=== PATIENT | female | born 1945 | race Caucasian/White ===

== ENCOUNTER → 2019-12-21 14:18 | Outpatient (CLI) | payer MEDICARE, SELFPAY ==
[2019-12-21 16:11] LABS: Influenza A - CEPHEID Flu A NEGATIVE (NEGATIVE); Influenza B - CEPHEID Flu B NEGATIVE (NEGATIVE)
[2019-12-22 21:52] LABS: COVID19 Sendout Not Detected (Not Detected)
== END ==
PROVIDERS: PCP Nurse Practitioner; Visit Provider Physician Assistant
DX: Z20.828 Contact with and (suspected) exposure to other viral communicable diseases (principal)
CPT/HCPCS: 87502; 87635

== ENCOUNTER → 2023-03-24 11:10 | Outpatient (CLI) | payer MEDICARE, SELFPAY ==
--- NOTE | 2023-03-24 11:15 | DI.MRI.S_ITS ---
PROCEDURE: MR KNEE RT WO CON INDICATIONS: RIGHT KNEE PAIN TECHNIQUE: Noncontrast sagittal PD fast spin echo and T2 fast spin echo with fat saturation, sagittal 3-D FLASH with fat saturation; coronal T1 spin echo and PD fast spin echo with fat saturation, and axial PD fast spin echo with fat saturation through the knee. COMPARISON: [facility], CR, XR KNEE 3 VIEWS BILATERAL, 02/20/2023, 9:42. FINDINGS: Image quality: Images are mildly degraded by patient motion on multiple pulse sequences. Diagnostic information is obtained. Anterior Cruciate Ligament: Intact. Posterior Cruciate Ligament: Intact. Medial Collateral Ligament: Intact. Lateral Collateral Ligament: Intact. Medial Meniscus: Intact. Lateral Meniscus: There is horizontal tearing of the body of the lateral meniscus extending to the adjacent anterior and posterior horns that communicates with the inner third of the femoral articular surface and the free edge margin. A small vertical longitudinal component is seen extending to the anterior root attachment. There is also suspected vertical component at the posterior horn. Medial and Lateral Tendons: The semimembranosus tendon insertions and meniscocapsular junction appear intact. Visualized portions of the pes anserinus tendons appear normal. No abnormal bursal fluid. The long and short heads of the biceps femoris tendon appear intact. The popliteus tendon appears intact. No signs of posterolateral corner injury. Iliotibial band appears normal. Anterior Structures: The quadriceps and patellar tendons appear intact. No patellar subluxation. No femoral trochlear dysplasia or ventral trochlear prominence. No edema in the infrapatellar fat pad. Bones: No acute trabecular bone injury or fracture. Medial Femorotibial Cartilage: Mild generalized partial-thickness cartilage thinning. Lateral Femorotibial Cartilage: Full-thickness cartilage loss is seen in the central to posterior weight-bearing portion of the lateral femorotibial compartment with moderate subchondral edema and small marginal osteophytes. No definite osseous fracture line is seen. Patellofemoral Cartilage: Full-thickness cartilage loss is seen at the median ridge of the patella with subchondral cystic changes and edema. There is background moderate high-grade partial-thickness cartilage loss throughout the medial and lateral patellar facets. Soft Tissues: A moderate to large joint effusion is present. Moderate medial popliteal cyst is seen that measures up to 8.4 cm and craniocaudal extent. Mild surrounding soft tissue edema may indicate prior cyst rupture. Small amount of fluid is seen tracking along the popliteus tendon sheath. The musculature surrounding the knee is normal in bulk. Mild varicose veins are noted in the medial subcutaneous tissues. Nonspecific subcutaneous soft tissue edema is seen surrounding the knee. IMPRESSION: 1. Complex tearing of the lateral meniscus with a horizontal component at the meniscal body and suspected horizontal and vertical longitudinal components at the anterior and posterior horns. 2. Full-thickness cartilage loss throughout the central to posterior weight-bearing portion of the lateral femorotibial compartment with moderate subchondral edema. No subchondral fracture is seen. Focal full-thickness cartilage loss is seen in the patellofemoral compartment superimposed on background grade 3 chondromalacia and there is mild grade 2 cartilage thinning in the medial compartment. 3. Cruciate and collateral ligaments are intact. Medial meniscus is intact. 4. Moderate to large joint effusion. Moderate medial popliteal cyst with signs of prior cyst rupture. Approved by: Marvin Calle M.D. on 03/25/2023 at 10:57
== END ==
PROVIDERS: PCP Nurse Practitioner; Referring Provider Nurse Practitioner Family; Visit Provider Nurse Practitioner Family
DX: S83.8X1A Sprain of other specified parts of right knee, initial encounter (principal); M94.261 Chondromalacia, right knee; M25.461 Effusion, right knee; M71.21 Synovial cyst of popliteal space [Baker], right knee
CPT/HCPCS: 73721

== ENCOUNTER → 2025-07-22 12:58 | Outpatient (CLI) | payer MEDICARE, SELFPAY ==
--- NOTE | 2025-07-22 13:05 | DI.RAD.S_ITS ---
PROCEDURE: XR KNEE STANDING BI INDICATIONS: FELL ON STAIRS TECHNIQUE: Two views of each knee were acquired . COMPARISON: None. FINDINGS: Bones: There are no fractures or other osseous abnormalities. Joints: Moderate bilateral patellofemoral and tibial femoral degeneration appreciated. No effusion . Soft tissues: Normal IMPRESSION: No fracture. Bilateral degeneration Dictated by: Sung Guaman M.D. on 07/23/2025 at 12:02 Approved by: Sung Guaman M.D. on 07/23/2025 at 12:03
== END ==
LOC: RAD 13:04
PROVIDERS: PCP Nurse Practitioner Family; Referring Provider Nurse Practitioner Family; Visit Provider Nurse Practitioner Family
DX: M17.0 Bilateral primary osteoarthritis of knee (principal)
CPT/HCPCS: 73565